=== PATIENT | male | born 1970 | race Hispanic/Latino ===

== ENCOUNTER 2019-05-26 18:29 | Emergency (ER) | payer MEDICAID ==
[2019-05-26] MEDS ORDERED: SODIUM CHLORIDE 0.9% 1000ML 2,000 ML IV ONE (19:42)
[2019-05-26 19:48] LABS: BASOPHILS % (AUTO) 0.3 % (0.0-5.0); EOSINOPHILS % (AUTO) 0.1 % (0.0-8.0); HEMATOCRIT 45.9 % (42-54); LYMPHOCYTES % (AUTO) 8.9 % (21.0-51.0); MEAN CORPUSCULAR HEMOGLOBIN 29.4 pg (27.0-33.0); MEAN CORPUSCULAR HGB CONC 35.1 g/dL (32.0-36.0); MEAN CORPUSCULAR VOLUME 83.8 fL (79-99); MONOCYTES % (AUTO) 3.7 % (3.0-13.0); NEUTROPHILS % (AUTO) 86.6 % (40.0-77.0); PLATELET COUNT (AUTO) 316 K/uL (130-400); RED BLOOD CELL COUNT(AUTO) 5.48 MIL/uL (4.50-6.20); RED CELL DISTRIBUTION WIDTH 11.6 % (11.0-15.5); WHITE BLOOD COUNT (AUTO) 14.3 K/uL (4.8-10.8)
[2019-05-26 19:51] LABS: APPEARANCE,URINE Clear (CLEAR); BILIRUBIN,URINE Negative (NEGATIVE); COLOR,URINE Yellow (YELLOW); GLUCOSE, URINE (UA) >=1000 mg/dL (NEGATIVE); KETONES,URINE Negative (NEGATIVE); LEUKOCYTE ESTERASE ,URINE Trace (NEGATIVE); NITRATE,URINE Negative (NEGATIVE); OCCULT BLOOD,URINE Negative (NEGATIVE); PROTEIN,URINE Trace mg/dL (NEGATIVE); UROBILINOGEN,URINE 0.2 mg/dL (0.2-1.0)
[2019-05-26 20:12] LABS: YEAST,URINE BUDDING Many /HPF (None Seen)
[2019-05-26 20:13] LABS: BACTERIA,URINE Few /HPF (None Seen); RBC,URINE None Seen /HPF (0-1)
[2019-05-26 20:14] LABS: SQUAMOUS EPITHELIAL CELL,UR 0-2 /HPF (0-2)
[2019-05-26 20:14] LABS: CARBON DIOXIDE 29 mmol/L (21-32); CHLORIDE 97 mmol/L (101-111); CREATININE 1.1 mg/dL (0.5-1.5); GLOMERULAR FILTR. RATE CALC 76 mL/min (>60); GLUCOSE,RANDOM 372 mg/dL (70-105); POTASSIUM 3.1 mmol/L (3.5-5.1); SODIUM SERUM 135 mmol/L (136-145); UREA NITROGEN, BLOOD 10 mg/dL (7-18)
[2019-05-26 20:19] LABS: ACETAMINOPHEN 5 mcg/mL (10-29); ALANINE AMINOTRANSFERASE 44 U/L (12-78); ALBUMIN 3.5 g/dL (3.5-5.0); ALCOHOL, BLOOD < 3 mg/dL (0-10); ASPARTATE AMINOTRANSFERASE 27 U/L (10-37); BILIRUBIN,TOTAL 0.9 mg/dL (0.2-1.0); CREATINE KINASE, TOTAL 37 U/L (21-232); TOTAL PROTEIN, SERUM 8.3 g/dL (6.0-8.3)
[2019-05-26 20:26] LABS: AMPHET/METH SCREEN,URINE NEGATIVE (NEGATIVE); BARBITURATE SCREEN, URINE NEGATIVE (NEGATIVE); BENZODIAZEPINES SCREEN,URINE NEGATIVE (NEGATIVE); CANNABINOID SCREEN,URINE NEGATIVE (NEGATIVE); COCAINE SCREEN,URINE NEGATIVE (NEGATIVE); OPIATE SCREEN,URINE NEGATIVE (NEGATIVE)
[2019-05-26 20:31] LABS: SALICYLATE < 2.8 mg/dL (2.8-20.0)
[2019-05-26] MEDS ORDERED: POTASSIUM CHLORIDE 20 MEQ ERTAB PO ONE (20:31)
[2019-05-26] MEDS ORDERED: MAGNESIUM OXIDE 400 MG TABLET PO ONE (20:31)
[2019-05-26] MEDS ORDERED: ACETAMINOPHEN EXTRA STRENGTH 500 MG TABLET ONE (20:50)
[2019-05-26 21:00] LABS: PHENCYCLIDINE SCREEN,URINE NEGATIVE (NEGATIVE)
[2019-05-26 21:24] LABS: BAND NEUTROPHILS % (MANUAL) 6 % (0-2); LYMPHOCYTES % (MANUAL) 7 % (22-44); MAN.DIFF COMMENT-IMPRESSION MANUAL DIFFERENTIAL; MONOCYTES % (MANUAL) 2 % (2-9); PLATELET MORPHOLOGY COMMENT ADEQUATE; SEGMENTED NEUTROPHILS % 85 % (40-70)
== END 2019-05-26 22:15 | disposition home or self-care (01) ==
LOC: EDH 18:29 → EEVIPCON 18:29 → EDH 22:15
DX: R45.851 Suicidal ideations (principal); B34.9 Viral infection, unspecified; R50.9 Fever, unspecified; E87.6 Hypokalemia; F32.9 Major depressive disorder, single episode, unspecified; E11.9 Type 2 diabetes mellitus without complications; Z98.890 Other specified postprocedural states
CPT/HCPCS: 36415; 80053; 80305; 81001; 82550; 85025; 87804 ×2; 93005; 99285; G0480 ×2; G0481; J7030; 96360

== ENCOUNTER 2024-10-26 07:24 | Day surgery (SDC) | payer MEDICAID ==
[2024-10-26] VITALS (16 sets, daily range): BP systolic 116–144; BP diastolic 70–104; PULSE 59–95; RESP 14–20; TEMP 96.7–98.6
[~2024-10-26] VITALS: Ht 162.6 cm; Wt 109.8 kg
[~2024-10-26 07:24] MED LIST: ATOR-2 PEG; BENZ2TAB71 PO; DAPA1TAB3 PO; FLUO40CA7 PEG; METH-811 PEG; TICA90TA PO
[2024-10-26] MEDS: 0.9%NACL 1000ML 1,000 ML IV ONE (09:18)
[2024-10-26] MEDS ORDERED: SUCCINYLCHOLINE CHLORIDE 20 MG/ML 10 ML VIAL ONE (09:47)
[2024-10-26] MEDS ORDERED: proPOFol 10 MG/ML 20ML VIAL IV ONE (09:48)
[2024-10-26] MEDS ORDERED: IOHEXOL-350 50ML VIAL IV ONE (09:55)
[2024-10-26] MEDS ORDERED: FLUO40CA49 PEG (09:59)
[2024-10-26] MEDS ORDERED: DAPA5TAB PEG (09:59)
[2024-10-26] MEDS ORDERED: POTA-202 PEG (09:59)
[2024-10-26] MEDS ORDERED: MIDO5TAB4 PEG (09:59)
[2024-10-26] MEDS ORDERED: PIOG15TA6 PEG (09:59)
[2024-10-26] MEDS ORDERED: OLAN7.5T50 PEG (09:59)
[2024-10-26] MEDS ORDERED: INSU100I15 SQ (09:59)
[2024-10-26] MEDS ORDERED: ASPI-1005 PEG (09:59)
[2024-10-26] MEDS ORDERED: TRAZ-185 PEG (09:59)
[2024-10-26] MEDS ORDERED: METO25TA6 PEG (09:59)
[2024-10-26] MEDS ORDERED: ACET-2247 PEG (09:59)
[2024-10-26] MEDS ORDERED: FAMO20TA8 PEG (09:59)
[2024-10-26] MEDS ORDERED: CLOP-31 PEG (09:59)
[2024-10-26] MEDS ORDERED: MIRT-93 PEG (09:59)
[2024-10-26] MEDS: INDOMETHACIN 100 MG SUPP.RECT RC ONE (10:02)
--- NOTE | 2024-10-26 12:15 | NUR ---
REPORT GIVEN TO NURSE JEREMY MATHEW. PENDING EMS TO ARRIVE
--- NOTE | 2024-10-26 12:40 | NUR ---
pt left via ems stretcher vss nad
--- NOTE | 2024-10-26 15:28 | HMCIMG ---
Fluoroscopic guidance History: ERCP Fluoroscopic guidance provided. Procedure by ordering physician in operating room suite with fluoroscopic guidance. Several spot images were obtained. Impression: Fluoroscopic guidance.
== END 2024-10-26 12:41 | disposition home or self-care (01) ==
LOC: DAH 07:24 → ENDO 07:24
PROVIDERS: ATTEND Internal Medicine Gastroenterology
DX: K80.40 Calculus of bile duct with cholecystitis, unspecified, without obstruction (principal); R13.12 Dysphagia, oropharyngeal phase; I10 Essential (primary) hypertension; F41.9 Anxiety disorder, unspecified; F32.A Depression, unspecified; E11.9 Type 2 diabetes mellitus without complications; Z79.84 Long term (current) use of oral hypoglycemic drugs; Z83.1 Family history of other infectious and parasitic diseases; Z79.82 Long term (current) use of aspirin; Z79.899 Other long term (current) drug therapy
CPT/HCPCS: 43261; 82948 ×2; 74328; 43264; 43275; 43273; J0330; J7030; J2704; Q9967; A4215 ×2; A4223; A4657; A7002; A4222; A4221; A4663; A4606; C1769; C1773; J3490